=== PATIENT | male | born 1955 | race Hispanic/Latino ===

== ENCOUNTER 2024-06-02 16:35 | Emergency (ER) | payer OTHER ==
[~2024-06-02] VITALS: Ht 172.7 cm; Wt 108.9 kg
--- NOTE | 2024-06-02 17:05 | ERN ---
General Chief Complaint: Headache Stated Complaint: HEADACHE Time Seen by MD: 16:37 History of Present Illness Initial Comments This is a case of 69-year-old male with a past medical history of diabetes mellitus type 2, hypertension who presented to the ED with the complaints of right-sided headache since 3 weeks. He states that he has started experiencing intermittent diffuse headaches more prominent on right side radiating to the back which increased in intensity since the past week. He also mentions experiencing relief while walking and also with change in position of the head. He denies fever, chills, dizziness, vertigo, nausea, vomiting, ear pain, ringing sound in the ear, decreased hearing loss, blurriness of vision, jaw pain, tearing of eyes, eye pain, facial numbness/tingling sensations/pain, chest pain, palpitations, abdominal pain, constipation/diarrhea, numbness/tingling sensation/weakness in all extremities. Allergies: Coded Allergies: No Known Drug Allergies (Unverified Allergy, Unknown, 06/02/24) Past Medical History Past Medical History: Diabetes-Type II, Hypertension Past Surgical History: None ROS Dictation CONSTITUTIONAL: No chills, no fever, no weakness, no diaphoresis, no malaise. HEAD/FACE: Intermittent Diffuse headache more prominent on the right side radiating to the back, No signs of trauma. EENT: No eye pain, no blurred vision, no tearing, no double vision, no ear pain, no ear discharge, no nose pain, no nasal congestion, no throat pain, no throat swelling, no mouth pain. RESPIRATORY: No cough, no orthopnea, no SOB, no stridor, no wheezing. CARDIOVASCULAR: No chest pain, no edema, no palpitations, no syncope. GASTROINTESTINAL/ABDOMINAL: No abdominal pain, no constipation, no diarrhea, no nausea, no vomiting. GENITOURINARY: No abnormal discharge, no dysuria, no frequent urination, no hematuria. No complaints of pain in the genitals. MUSCULOSKELETAL: No back pain, no gout, no joint pain, no joint swelling, no muscle pain, no muscle stiffness, no neck pain. INTEGUMENTARY: No change in color, no change in hair/nails, no dryness, no lesion, no lumps, no rash. NEUROLOGICAL/PSYCH: No anxiety, not depressed, no emotional problem, no headache, no numbness, no pre-existing deficit, no history of seizures, no tremors, no weakness. HEMATOLOGIC/LYMPHATIC: Not anemic, no history of blood clots, no apparent bleeding, no bruising, glands not swollen. All Systems Negative, Except as Noted. Physical Exam Physical Exam Dictation Physical Exam Dictation VITAL SIGNS: Reviewed. GENERAL APPEARANCE: Alert, oriented x3, no acute distress, obese. HEAD AND FACE: Non-traumatic., mild tenderness of the right forehead EYES: PERRL, pink conjunctivas, eyelid no trauma, anterior chamber clear. NOSE: No discharge, no bleeding. OROPHARYNX: Mouth normal, teeth no caries, tongue pink. Pharynx clear, no erythema. Tonsils no exudates, no abscesses noted. Mucous membrane moist. NECK: Supple, non-tender, no thyromegaly, no masses, no JVD, no bruits. BREAST: Deferred. CHEST: No tenderness, no crepitus, no paradoxical movement, no retractions. LUNGS: Clear, well-ventilated, symmetric, no rales, no wheezing, no rhonchi, no stridor, good breath sounds bilaterally. HEART: Regular rate, regular rhythm, no murmur, no gallops. VASCULAR: No peripheral edema. ABDOMEN: Soft, positive bowel sounds, nondistended, no guarding, nontender, no rebound, no masses no hepatomegaly, no splenomegaly, no Gay's sign, no hernias. RECTAL: Deferred. GENITAL: Deferred. NEUROLOGICAL: Normal speech, gross motor function intact, gross sensory function intact. MUSCULOSKELETAL: Neck nontender, full range of motion, back nontender, full range of motion. EXTREMITIES: TRACE BILATERAL LOWER EXTREMITY EDEMA, Nontender, full range of motion. SKIN: Color pink, dry, no turgor, no rash, no lacerations, no abrasions, no contusions. LYMPHATICS: Deferred. Results Laboratory and Microbiology Lab and Micro Result Laboratory Tests Test 06/02/24 17:59 White Blood Count 12.4 K/uL (4.8-10.8) H Red Blood Count 5.21 MIL/uL (4.50-6.20) Hemoglobin 16.2 g/dL (14.0-18.0) Hematocrit 48.1 % (42-54) Mean Corpuscular Volume 92.3 fL (79-99) Mean Corpuscular Hemoglobin 31.1 pg (27.0-33.0) Mean Corpuscular Hemoglobin Concent 33.7 g/dL (32.0-36.0) Red Cell Distribution Width 12.3 % (11.0-15.5) Platelet Count 208 K/uL (130-400) Mean Platelet Volume 10.6 fL (7.5-10.5) H Immature Granulocyte % (Auto) 0.9 % (0-1) Neutrophils (%) (Auto) 68.3 % (40.0-77.0) Lymphocytes (%) (Auto) 22.3 % (21.0-51.0) Monocytes (%) (Auto) 6.9 % (3.0-13.0) Eosinophils (%) (Auto) 1.0 % (0.0-8.0) Basophils (%) (Auto) 0.6 % (0.0-5.0) Neutrophils # (Auto) 8.5 K/uL (1.8-7.7) H Lymphocytes # (Auto) 2.8 K/uL (1.0-4.8) Monocytes # (Auto) 0.9 K/uL (0.1-1.0) Eosinophils # (Auto) 0.12 K/uL (0.00-0.70) Basophils # (Auto) 0.08 K/uL (0.00-0.20) Absolute Immature Granulocyte (auto 0.11 K/uL (0-1) Nucleated Red Blood Cells 0.0 % (0.0-0.19) Sodium Level 143 mmol/L (136-145) Potassium Level 4.3 mmol/L (3.5-5.1) Chloride Level 105 mmol/L (101-111) Carbon Dioxide Level 30 mmol/L (21-32) Blood Urea Nitrogen 10 mg/dL (7-18) Creatinine 1.0 mg/dL (0.5-1.3) Glomerular Filtration Rate Calc 82 mL/min (>90) Random Glucose 123 mg/dL (70-105) H Total Calcium 9.6 mg/dL (8.5-10.1) Troponin I High Sensitivity 7 ng/L (4-75) EKG/XRAY/US/CT/MRI CT Scan Comment PROCEDURE: HEAD WO - CT HEAD/BRAIN W/O CONTRAST CT HEAD/BRAIN W/O CONTRAST HISTORY: Right-sided headaches COMPARISON: None TECHNIQUE: Multiple sequential axial images of the head were obtained from the base of the skull through vertex. Patient was not given contrast through intravenous route. FINDINGS: The ventricles and extraventricular CSF spaces are dilated consistent with cerebral atrophy. Nonspecific white matter changes seen. There is no midline shift, mass effect or herniation. No acute intracranial bleed is seen. Visualized portion of the paranasal sinuses are grossly within normal limits. IMPRESSION: 1. No acute intracranial bleed is seen. 2. Atrophy with white matter changes. MDM MDM Potential differential diagnoses include: STROKE ELECTROLYTE IMBALANCE MIGRAINE TENSION HEADACHE Assessment: We will order CBC to rule any anemia, infections and to evaluate the overall health of the patient. CMP was ordered in order to assess various electrolytes, kidney function, liver function ,protein levels and blood glucose levels I will re-evaluate the patient after treatment and diagnostic exams have returned to determine whether they require further testing, can be safely discharged home, or need admission for further treatment and evaluation. Given the social determinants of health affecting care, including literacy, access to medical care, prescription drug management, and [id number] drugs, I will ensure that treatment plans are tailored accordingly. Revaluation : PATIENT IS ALERT AWAKE AND ORIENTED. CLINICALLY STABLE. LABS WBC 12.4. BMP, TROPONIN LEVELS ARE NORMAL. CT HEAD RESULTED IN NO ACUTE FINDINGS. NEUROLOGICAL EXAMINATION IS NORMAL. CRANIAL NERVES 2-12 ARE INTACT WITH NO DEFICITS. MOTOR STRENGTH IS 5 X 5 IN ALL EXTREMITIES AND MUSCLE TONE IS NORMAL. SENSATION IS INTACT TO LIGHT TOUCH, PAIN AND VIBRATION IN ALL DERMATOMES. CEREBELLAR FUNCTION INTACT WITH NORMAL GAIT AND COORDINATION. NO SIGNS OF MENINGEAL IRRITATION OR FOCAL NEUROLOGICAL DEFICITS Disposition: ED Course Orders Procedure Category Date Status Time Cbc With Differential LAB 06/02/24 Complete 17:17 Basic Metabolic Panel LAB 06/02/24 Complete 17:17 Ct Head/Brain W/O CT 06/02/24 Resulted Contrast 17:17 Acetaminophen 500mg PHA 06/02/24 Complete Tab (Tylenol 500mg T 17:30 Prochlorperazine PHA 06/02/24 Complete 10mg/2ml Inj 17:30 Diphenhydramine Hcl PHA 06/02/24 Complete (Benadryl Inj) 17:30 0.9%Nacl 1000ml (Ns PHA 06/02/24 Complete 1000ml) 17:30 Troponin I High LAB 06/02/24 Complete Sensitivity 17:26 Orphenadrine Citrate PHA 06/02/24 In Process (Norflex) 19:00 Ketorolac PHA 06/02/24 In Process Tromethamine 30mg/Ml 19:00 Current Medications Medications (Trade) Dose Ordered Sig/Geni Route PRN Reason Start Time Stop Time Status Last Admin Dose Admin Acetaminophen (TYLenol 500MG TAB) 500 mg ONCE ONCE PO 06/02/24 17:30 06/02/24 17:36 DC 06/02/24 18:07 Diphenhydramine HCl (BENAdryl INJ) 25 mg ONCE ONCE IV 06/02/24 17:30 06/02/24 17:36 DC 06/02/24 18:06 Ketorolac Tromethamine (toRADol) 30 mg ONCE IVP 06/02/24 19:00 06/02/24 23:00 Orphenadrine Citrate (Norflex) 60 mg ONCE IVP 06/02/24 19:00 06/02/24 23:00 Prochlorperazine Edisylate (Compazine 10mg/ 2ml Inj) 10 mg ONCE ONCE IV 06/02/24 17:30 06/02/24 17:36 DC 06/02/24 18:07 Sodium Chloride 1,000 ml @ 0 mls/hr ONCE ONCE IV 06/02/24 17:30 06/02/24 17:36 DC 06/02/24 18:07 Vital Signs Date Time Temp Pulse Resp B/P (MAP) Pulse Ox O2 Delivery O2 Flow Rate FiO2 06/02/24 18:02 97.9 84 20 177/73 97 Room Air* 0 21 06/02/24 16:41 98.2 65 16 174/90 98 Room Air 0 06/02/24 16:38 98.2 65 16 174/90 98 Room Air* 0 21 DX & DISP Disposition: Discharge Departure Impression: Primary Impression: Tension headache Condition: Stable Scripts Diclofenac Sodium (Voltaren Arthritis Pain) 1 % Gel..gram. 4 GM TP BID for 7 Days, #1 TUBE Prov: ROSCOE JEREZ MD 06/02/24 Methocarbamol (Robaxin) 750 Mg Tab 1 TAB PO BID for 5 Days, #10 TAB 0 Refills Prov: ROSCOE JEREZ MD 06/02/24 Referrals: SELF,REFERRAL (PCP) MATTHEW CHU MD Time of Disposition: 18:55 ANALY GARCIA MD Jun 02, 2024 17:05 ROSCOE JEREZ MD Jun 02, 2024 18:57
[2024-06-02 18:02] VITALS: BP 177/73; PULSE 84; RESP 20; TEMP 97.8; O2SAT 97
[2024-06-02 18:06] LABS: BASOPHILS # (AUTO) 0.08 K/uL (0.00-0.20); BASOPHILS % (AUTO) 0.6 % (0.0-5.0); EOSINOPHILS # (AUTO) 0.12 K/uL (0.00-0.70); HEMATOCRIT 48.1 % (42-54); IMMATURE GRANULOCYTE ABSOLUTE 0.11 K/uL (0-1); LYMPHOCYTES # (AUTO) 2.8 K/uL (1.0-4.8); LYMPHOCYTES % (AUTO) 22.3 % (21.0-51.0); MEAN CORPUSCULAR HEMOGLOBIN 31.1 pg (27.0-33.0); MEAN CORPUSCULAR HGB CONC 33.7 g/dL (32.0-36.0); MEAN CORPUSCULAR VOLUME 92.3 fL (79-99); MONOCYTES # (AUTO) 0.9 K/uL (0.1-1.0); MONOCYTES % (AUTO) 6.9 % (3.0-13.0); NEUTROPHILS # (AUTO) 8.5 K/uL (1.8-7.7); NEUTROPHILS % (AUTO) 68.3 % (40.0-77.0); PLATELET COUNT (AUTO) 208 K/uL (130-400); RED BLOOD CELL COUNT(AUTO) 5.21 MIL/uL (4.50-6.20); RED CELL DISTRIBUTION WIDTH 12.3 % (11.0-15.5); WHITE BLOOD COUNT (AUTO) 12.4 K/uL (4.8-10.8)
[2024-06-02] MEDS: DiphenhydrAMINE HCL 50 MG/ML VIAL IV ONE (18:06)
[2024-06-02] MEDS: 0.9%NACL 1000ML 1,000 ML IV ONE (18:07)
[2024-06-02] MEDS: acetaMINOPHEN 500 MG TABLET PO ONE (18:07)
[2024-06-02] MEDS: PROCHLORPERAZINE 10MG/2ML INJ IV ONE (18:07)
--- NOTE | 2024-06-02 18:11 | HMCIMG ---
CT HEAD/BRAIN W/O CONTRAST HISTORY: Right-sided headaches COMPARISON: None TECHNIQUE: Multiple sequential axial images of the head were obtained from the base of the skull through vertex. Patient was not given contrast through intravenous route. FINDINGS: The ventricles and extraventricular CSF spaces are dilated consistent with cerebral atrophy. Nonspecific white matter changes seen. There is no midline shift, mass effect or herniation. No acute intracranial bleed is seen. Visualized portion of the paranasal sinuses are grossly within normal limits. IMPRESSION: 1. No acute intracranial bleed is seen. 2. Atrophy with white matter changes. CT was performed with one or more following dose reduction techniques: automated exposure control, adjustment of the mA and kv according to patient's size, or use of a iterative reconstruction technique.
[2024-06-02 18:14] LABS: POTASSIUM 4.3 mmol/L (3.5-5.1)
[2024-06-02] MEDS ORDERED: METH-662 PO (18:56)
[2024-06-02] MEDS ORDERED: DICL20GE TP (18:56)
[2024-06-02] MEDS: ORPHENADRINE 60MG/2ML IVP SCH (19:01)
[2024-06-02] MEDS: ketOROlac 30MG VIAL (30MG/ML) IVP SCH (19:01)
== END 2024-06-02 19:24 | disposition home or self-care (01) ==
LOC: EDH 16:35
DX: G44.209 Tension-type headache, unspecified, not intractable (principal); E11.9 Type 2 diabetes mellitus without complications; I10 Essential (primary) hypertension
CPT/HCPCS: 99285; 96374; 96375; 70450; 96361; 84484; 80048; 85025; 36415; J1885; J1200; J7030; J0780; J2360